=== PATIENT | male | born 1960 | race Caucasian/White ===

== ENCOUNTER 2021-04-18 12:01 | Outpatient (CLI) | payer OTHER ==
[2021-04-18 12:36] VITALS: BP 121/65; TEMP 98.1
[2021-04-18] MEDS ORDERED: Lidocaine 1% PF 5 ML VIAL ONE (13:03)
[2021-04-18] MEDS ORDERED: Sodium Bicarbonate 2.5 MEQ/5 ML VIAL ONE (13:03)
== END 2021-04-18 15:20 | disposition home or self-care (01) ==
LOC: CSHRAD 12:01
PROVIDERS: ATTEND Neurological Surgery
DX: M43.16 Spondylolisthesis, lumbar region (principal); Z98.1 Arthrodesis status; T84.216A Breakdown (mechanical) of internal fixation device of vertebrae, initial encounter; N20.0 Calculus of kidney
CPT/HCPCS: 62304; 72132